=== PATIENT | male | born 1950 | race Caucasian/White ===

== ENCOUNTER → 2018-03-29 | Day surgery (SDC) | payer OTHER | END | disposition home or self-care (01) | PROC: 3E033TZ Introduction of Destructive Agent into Peripheral Vein, Percutaneous Approach (ICD-10-PCS; principal; 2018-03-29) | PROC: 06LQ3ZZ Occlusion of Left Saphenous Vein, Percutaneous Approach (ICD-10-PCS; principal; 2018-03-29) | DX: I83.222 Varicose veins of left lower extremity with both ulcer of calf and inflammation (principal) ==

== ENCOUNTER 2018-06-09 09:29 | Observation (INO) | payer OTHER ==
[2018-06-09] MEDS ORDERED: LR 1,000 ML IV ONE (09:42)
[2018-06-09] MEDS ORDERED: DEXMEDETOMIDINE HCL 200 MCG in NS 50 ML IV ONE (10:30)
[2018-06-09] MEDS ORDERED: ceFAZolin 2 GM/DEXTROSE 100 ML IV ONE (10:49)
[2018-06-09] MEDS ORDERED: DEXAMETHASONE 10 MG/ML VIAL IVP ONE (10:49)
--- NOTE | 2018-06-09 10:49 | PDHPUP ---
History & Physical Update H&P update statement: This history and physical update is based on an assessment of the patient which was completed after admission or registration (within 24 hours), but prior to the surgery/procedure. H&P update: H&P reviewed & patient examined
[2018-06-09] MEDS ORDERED: LIDO/EPI 1% **for epidural** 30 ML SDV ONE (10:58)
[2018-06-09] MEDS ORDERED: OXYMETAZOLINE 30 ML NASAL SPRAY ONE ×2 (10:58→11:16)
[2018-06-09] MEDS ORDERED: BACITRACIN ZINC 14.2 GM OINTTUBE TP ONE ×2 (10:59→11:15)
--- NOTE | 2018-06-09 11:04 | PDANEPAE ---
ANE Past Medical History - Cardiovascular History Hx Hypertension: Yes Hx Arrhythmias: No Hx Chest Pain: No Hx Coronary Artery / Peripheral Vascular Disease: No Hx CHF / Valvular Disease: No Hx Palpitations: No Cardiovascular History Comment: bilateral lower leg lymphodema. pcp monitors bp medications - Pulmonary History Hx COPD: No Hx Asthma/Reactive Airway Disease: No Hx Recent Upper Respiratory Infection: No Hx Oxygen in Use at Home: No Hx Sleep Apnea: Yes Sleep Apnea Screening Result - Last Documented: Positive Pulmonary History Comment: rodo positive- uses cpap- instructed pt to bring to hospital - Neurologic History Hx Cerebrovascular Accident: No Hx Seizures: No Hx Dementia: No Neurologic History Comment: hx of spinal surgery x3. numbness to finger tips bilaterally since surgeries - Endocrine History Hx Diabetes: No Endocrine History Comment: thyroid nodule- recent biopsy - Renal History Hx Renal Disorders: Yes Renal History Comment: bph - Liver History Hx Hepatic Disorders: No - Neurological & Psychiatric Hx Hx Neurological and Psychiatric Disorders: No - Cancer History Hx Cancer: Yes Cancer History Comment: skin ca- basal cell to back removed - Congenital Disorder History Hx Congenital Disorders: No - GI History Hx Gastrointestinal Disorders: Yes Gastrointestinal History Comment: reflux - Other Health History Other Health History: wears glasses. glaucoma- just started using eye drops. non-healing wound to left leg since 2013 during back. surgery, lymphodema makes it. difficult to heal. 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 MSSA 01/12/18 treated and seen by [facility], cleared 02/2018 - Chronic Pain History Chronic Pain: Yes (bilateral lymphodema) - Surgical History Prior Surgeries: bilateral knee scopes- meniscus repairs right- 05/28/2004 left - 09/21/2012. lithotripsy- right side 03/15/2009. 1996 left hand surgery for ruptured ligament. spinal surgery x3- 2013, 03/14/2015 replacement of titanium rods from prior surg, and 02/21/2016 collapsed infrastructure. laser ablation 03/2018 for venous insuff bilateral legs with Mao ANE Review of Systems Review of Systems: - Exercise capacity METS (RN): 4 METS ANE Patient History - Allergies Allergies/Adverse Reactions: codeine Allergy (Verified 05/27/18 12:46) Vomiting ibuprofen [From Motrin] Allergy (Verified 05/27/18 12:46) Gastric Bleed statins Allergy (Uncoded 05/27/18 12:46) leg cramps - Home Medications Home Medications: Furosemide [Lasix 40 MG (*)] 40 mg PO BID@09,14 09/01/14 [Last Taken 06/08/18] Ascorbic Acid [Vitamin C 250 mg (*)] 250 mg PO DAILY 03/23/18 [Last Taken ] Cholecalciferol Vit D3 [Vitamin D3 (*)] 2,000 units PO BID 03/23/18 [Last Taken 06/08/18] Losartan Potassium [Cozaar 25 mg (*)] 25 mg PO DAILY@03/23/18 [Last Taken ] Pantoprazole Sodium [Protonix 40mg (*)] 40 mg PO DAILY@03/23/18 [Last Taken 06/09/18] Tamsulosin HCl [Flomax 0.4 MG (*)] 0.4 mg PO DAILY@03/23/18 [Last Taken 06/08] Vitamin B Complex [Vitamin B Complex (OTC)] 1 each PO DAILY@03/23/18 [Last Taken 06/08/18] Acetaminophen/ASA/Caffeine [Excedrin Tablet (*)] 2 each PO DAILY PRN 05/27/18 [ Last Taken 06/08/18] Acetaminophen/ASA/Caffeine [Excedrin Tablet (*)] 2 each PO HS 05/27/18 [Last Taken 06/08/18] Bimatoprost 0.01% [Lumigan 0.01% (*)] 1 drops EACHEYE HS 05/27/18 [Last Taken ] Diazepam [Valium 5 MG (*)] 5 mg PO DAILY PRN 05/27/18 [Last Taken Unknown] Fluticasone Nasal [Flonase Nasal [place] (RX)] 1 sprays NASAL DAILY@05/27/18 [ Last Taken 06/08/18] Herbals/Supplements -Info Only 1 ea PO DAILY 05/27/18 [Last Taken 06/08/18] Potassium Cl [Klor-Con 20 meq (*)] 20 meq PO BID 05/27/18 [Last Taken 06/08/18] - NPO status NPO Since - Liquids (Date): 06/09/18 NPO Since - Liquids (Time): 06:00 NPO Since - Solids (Date): 06/08/18 NPO Since - Solids (Time): 22:30 - Smoking Hx Smoking Status: Former smoker - Family Anes Hx Family Hx Anesthesia Complications: none ANE Labs/Vital Signs - Vital Signs Blood Pressure: 144/62 Heart Rate: 63 Respiratory Rate: 16 O2 Sat (%): 94 Height: 167.64 cm Weight: 107.955 kg ANE Physical Exam - Airway Neck exam: FROM Mallampati Score: Class 3 Mouth exam: small mouth opening - Pulmonary Pulmonary: no respiratory distress - Cardiovascular Cardiovascular: regular rate and rhythym - ASA Status ASA Status: III (RODO) ANE Anesthesia Plan Total IV Anesthesia: Yes
[2018-06-09] MEDS ORDERED: fentaNYL 100 MCG/2 ML INJ ONE ×2 (11:05→14:24)
[2018-06-09] MEDS ORDERED: MIDAZOLAM 2 MG/2 ML VIAL ONE (11:05)
[2018-06-09] MEDS ORDERED: LIDO/EPI 2% **for epidural** 20 ML SDV ONE (11:16)
[2018-06-09] MEDS ORDERED: fentaNYL 100 MCG/2 ML INJ IVP PRN (11:19)
[2018-06-09] MEDS ORDERED: ONDANSETRON 4 MG/2 ML VIAL IVP PRN (11:19)
[2018-06-09] MEDS ORDERED: NALOXONE HCL 0.4 MG/ML INJ IVP PRN ×2 (11:19→13:24)
[2018-06-09] MEDS ORDERED: ALBUTEROL 3 ML DEYVIAL IH PRN (11:19)
[2018-06-09] MEDS ORDERED: PROPOFOL 200 MG/20 ML VIAL ONE (12:28)
[2018-06-09] MEDS ORDERED: DEXAMETHASONE 4 MG/ML VIAL ONE ×3 (12:29)
[2018-06-09] MEDS ORDERED: BACITRACIN 50,000 UNITS/10 ML SYR IRR ONE (12:52)
--- NOTE | 2018-06-09 13:24 | POSTANESTH ---
Post Anesthetic Evaluation Cardiovascular Status: Similar to Pre-Op Cond Respiratory Status: Similar to Pre-op Cond. Level of Consciousness/Mental Status: Alert and Oriented Pain Control: Adequate, Prn Tx Ordered Nausea/Vomiting Control: Adequate, Prn Tx Ordered Complications Possibly Related to Anesthesia: None Noted
[2018-06-09] MEDS ORDERED: D5W 1/2 NS 1,000 ML IV SCH (13:45)
[2018-06-09] MEDS ORDERED: ceFAZolin 0.5 GM in NS 50 ML IV SCH (14:00)
[2018-06-09] MEDS ORDERED: ONDANSETRON 4 MG/2 ML VIAL ONE (14:35)
[2018-06-09] MEDS: ONDANSETRON 4 MG/2 ML VIAL IVP PRN ×2 (15:11→20:46)
[2018-06-09] MEDS: HYDROCOD/APAP 7.5/325 IN 15ML UDCUP PO PRN ×2 (16:03→20:36)
--- NOTE | 2018-06-09 17:20 | SOAPPROG ---
SOAP Progress Note Assessment/Plan: Assessment: Pt s/p left thyroplasty. Patient doing well. Voice slightly hoarse. Dressing in place Plan to D/C tomorrow Pt was evaluated by Dr. Willis 06/09/18 17:11 Objective: Vital Signs Temp Pulse Resp BP Pulse Ox 37.0 C 50 L 18 134/70 H 95 06/09/18 16:45 06/09/18 16:45 06/09/18 16:45 06/09/18 16:45 06/09/18 16:45 06/08/18 06/09/18 06/10/18 05:59 05:59 05:59 Intake Total 900 Output Total 200 Balance 700 ICD10 Worksheet Patient Problems: Problems Problem Status Onset Vocal cord paralysis Acute - ICD10 Problem Qualifiers (1) Vocal cord paralysis
--- NOTE | 2018-06-10 02:50 | GOP ---
DATE OF OPERATION: 06/09/2018 SURGEON: Lucas Willis MD THIRD SHIFT LIEUTENANT: MD Annelise Obrien PA-C ANESTHESIA: Local with IV sedation. PREOPERATIVE DIAGNOSIS: Left vocal cord paralysis. POSTOPERATIVE DIAGNOSIS: Left vocal cord paralysis. PROCEDURE PERFORMED: 1. Left Hernandez thyroplasty. 2. Flexible fiberoptic laryngoscopy. FINDINGS: A Hernandez thyroplasty implant male size 10 was placed. SPECIMENS: None. ESTIMATED BLOOD LOSS: Less than 50 mL. INDICATIONS: The patient is a 68-year-old man with progressive weakness of the left vocal cord to th e point he now has complete paralysis. Workup has not shown a specific cause for the paralysis. The re still remains a significant suspicion this could be related to thyroid disease, although multiple ultrasounds and several needle biopsies have not shown evidence of cancer. The patient presents for medialization thyroplasty in hopes of improving the strength of his vocal projection and the quality of his voice. DESCRIPTION OF PROCEDURE: The patient was taken to the OR and positively identified, placed on monit ors, and IV sedation was administered. The neck was prepped and draped in the normal sterile fashion . An incision was marked out along the transverse neck skin crease and infiltrated with 8 mL 1% lido bertha with 1:100,000 epinephrine. The skin was then sharply incised. Dissection was then carried do wn through the platysma. The strap muscles were located at the midline and elevated off the left jake e of the thyroid lamina. The left thyroid lamina was then skeletonized. The measuring device was us ed to measure 2.9 mm above the inferior border of the thyroid cartilage anterior and posterior to the tubercle. The T point was then identified, measuring off the midline. The measuring device was the n used to delineate the borders for the implant. The reciprocating saw was then used to make the rec tangular cuts through the cartilage, which was quite calcified. Posteriorly, the deeper portion once I elevated the rectangular bit of cartilage out, we saw some bubbles emanating from this region, whi ch stopped soon thereafter. I did not see a visible tear in the mucosa. At this point, Dr. Merchant broke scrub to perform the laryngoscopy. Once we had the patient's larynx under visualization, the IV sedation was lightened and the sizers were used to pick the most appropri ate size for the implant. The best voice seemed to be with the size 10 implant. This implant was th en placed into position. The wound was then irrigated with bacitracin solution. Hemostasis was assu red. The [place] drain was placed in the wound and the wound was then closed with interrupted 3-0 Vi cryl to reapproximate the strap muscles and the platysma followed by 5-0 Prolene to the skin. A ster ile dressing was placed and the case was terminated. The anesthetic discontinued. The patient was t aken to the postop care unit in good condition having tolerated the procedure well. COMPLICATIONS: A small tear was inadvertently made in the mucosa during entry through the thyroid ca rtilage. This was noted by the presence of small bubbles at one point in the procedure and near the end. There was no visible opening. DRAINS: A Bo drain was placed. /[id number]/MODL
[2018-06-10] MEDS: ACETAMINOPHEN 160 MG/5 ML UDCUP PO PRN ×3 (03:11→12:02)
[2018-06-10] MEDS ORDERED: DIAZEPAM 5 MG TAB PO PRN (06:47)
[2018-06-10] MEDS ORDERED: PANTOPRAZOLE SODIUM 40 MG TAB PO SCH (07:00)
[2018-06-10] MEDS ORDERED: LOSARTAN POTASSIUM 25 MG TAB PO SCH (09:00)
[2018-06-10] MEDS ORDERED: FUROSEMIDE 40 MG TAB PO SCH (09:00)
[2018-06-10] MEDS ORDERED: DEXAMETHASONE 10 MG/ML VIAL IVP SCH (09:00)
[2018-06-10] MEDS ORDERED: POTASSIUM CL 20 MEQ TAB PO SCH (09:00)
[2018-06-10] MEDS ORDERED: CHOLECALCIFEROL VIT D3 1,000 UNITS TAB PO SCH (09:00)
[2018-06-10] MEDS ORDERED: TAMSULOSIN HCL 0.4 MG CAP PO SCH (09:30)
[2018-06-10] MEDS ORDERED: LOSARTAN POTASSIUM 50 MG TAB PO SCH (10:15)
[2018-06-10 10:17] VITALS: BP 122/50
--- NOTE | 2018-06-10 11:54 | PDDCSUM ---
Discharge Summary Discharge Summary: Pt POD #1 s/p left thyroplasty by Dr. Willis Pt is doing well. AFVSS Voice is hoarse. Able to tolerate PO Pain controlled Drain with moderate output, has stopped Incision c/d/i Drain removed, dressing replaced. Reviewed post op care. Follow up next week with Dr. Willis, plan reviewed with him.
== END 2018-06-10 15:17 | disposition home or self-care (01) ==
LOC: F3E 09:29
PROVIDERS: ADMIT Otolaryngology; ATTEND Otolaryngology
PROC: 0CUV8JZ Supplement Left Vocal Cord with Synthetic Substitute, Via Natural or Artificial Opening Endoscopic (ICD-10-PCS; principal; 2018-06-09 11:00)
DX: J38.01 Paralysis of vocal cords and larynx, unilateral (principal); K21.9 Gastro-esophageal reflux disease without esophagitis; G47.33 Obstructive sleep apnea (adult) (pediatric); Z86.14 Personal history of Methicillin resistant Staphylococcus aureus infection; H40.9 Unspecified glaucoma
CPT/HCPCS: 31591; G0378; J0690; J1100; J2250; J2405; J2704; J3010

== ENCOUNTER → 2018-11-29 | Outpatient (CLI) | payer OTHER | LOC: FCPNEURO 20:00 | PROVIDERS: ATTEND Student in an Organized Health Care Education/Training Program | DX: G47.33 Obstructive sleep apnea (adult) (pediatric) (principal) ==

== ENCOUNTER → 2019-02-20 | Outpatient (CLI) | payer OTHER | LOC: BRMIMAGING 12:45 ==